=== PATIENT | female | born 1940 | race African-American/Black ===

== ENCOUNTER → 2019-03-15 | Outpatient (CLI) | payer MEDICARE, OTHER ==
[~2019-03-15] MED LIST: AMLO5TAB66 PO; CAND32TA20 PO; FEXOFENADINE; FURO20TA4 PO; POTA10TA10 PO; VITAMIN C
== END | disposition home or self-care (01) ==
LOC: RADPV 10:38
DX: M77.32 Calcaneal spur, left foot (principal); M19.072 Primary osteoarthritis, left ankle and foot

== ENCOUNTER 2023-09-29 11:35 | Emergency (ER) | payer MEDICARE, OTHER ==
[~2023-09-29] VITALS: Ht 170.2 cm; Wt 80.0 kg
[~2023-09-29 11:35] MED LIST changes: +POTA-185 PO; -POTA10TA10 PO
[2023-09-29 11:48] VITALS: TEMP 97.9
[2023-09-29 14:10] VITALS: BP 130/62; PULSE 60; RESP 18
== END 2023-09-29 14:33 | disposition home or self-care (01) ==
LOC: EMS 11:35
DX: R20.8 Other disturbances of skin sensation (principal); M43.22 Fusion of spine, cervical region; I10 Essential (primary) hypertension; Z91.040 Latex allergy status
CPT/HCPCS: 70450; 99284